=== PATIENT | male | born 1960 | race Two or more races ===

== ENCOUNTER 2025-02-11 08:33 | Inpatient (IN) | payer BC ==
[~2025-02-11] VITALS: Ht 190.5 cm; Wt 138.4 kg
[~2025-02-11 08:33] MED LIST: ALBUAER3 IN; DILT-29 PO; FLUT1AER17 IN; GABA-1250 PO; LOSA-535 PO; METO-289 PO; MISC1CAP7 PO; MULT-1180 PO; OMEP20TA PO; OXYC-963 PO; ROSU20TA14 PO; TIRZ12.5 SC
[2025-02-11] MEDS ORDERED: ONDANSETRON HCL 4 MG/2 ML VIAL ONE (08:55)
[2025-02-11] MEDS ORDERED: ROCURONIUM 10MG/ML 10ML VIAL IV ONE (08:55)
[2025-02-11] MEDS ORDERED: PROPOFOL 10 MG/ML 20 ML IV ONE ×3 (08:55→11:44)
[2025-02-11] MEDS ORDERED: GLYCOPYRROLATE 0.2 MG/ML 1ML VIAL ONE (08:55)
[2025-02-11] MEDS ORDERED: fentaNYL CITRATE 100 MCG/2 ML VL ONE (08:56)
[2025-02-11] MEDS ORDERED: KETAMINE 50mg/ML 1ml syringe ONE (08:56)
[2025-02-11] MEDS ORDERED: SODIUM CHLORIDE LOCK 10 ML ONE ×5 (08:56→14:50)
--- NOTE | 2025-02-11 10:16 | POSTOP ---
Post-Operative Note Post-Operative Note Preop Diagnosis Post laminectomy syndrome Postop Diagnosis: 1. Post laminectomy syndrome lumbar spine with severe residual lumbar spinal stenosis at L4/5 and L5/S1 along with severe central canal stenosis at L3/4 2. Spondylolisthesis at the L4/5 and L5/S1 levels 3. 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 Revision lumbar 5 laminotomies/foraminotomies/facetectomies to decompress central canal and lumbar 5 nerve roots bilaterally 2. Revision lumbar 4 laminotomies, foraminotomies/facetectomies to decompress central canal and lumbar 4 nerve roots bilaterally 4. Lumbar 3 laminectomy with bilateral lumbar 2 laminotomies/foraminotomies/facetectomies to decompress spinal canal and lumbar 3 nerve roots 5. Lumbar 4 to sacral 1 posterior spinal intertransverse fusion with bone graft 6. Lumbar4 to sacral 1 posterior spinal instrumentation with pedicle screws 7. Autograft bone for fusion 8. Allograft bone to augment fusion Specimen None Anesthesia: General Anesthesiologist: Shemar Lin ALLERGY NURSE Blood Loss(fluid mgmt) See anesthesia record Tourniquet Time None Surgeon Dr Khari Momin Meat Curer Angeli Mancilla, ARAM RN FA Implant 6.5 x 35 x 2 screws 6.5x45x4 screw set screw x 6 80mm daquan x 2 Complications & Mgmt None Additional Remarks POD # 0 Dx: Post laminectomy syndrome -Disposition: -Pending -Discharge RX: Pending -Follow up appointment: with Dr Momin on on your scheduled postoperative appointment [id number] [facility] [address] [place] [address] [place] [id number] -Pain: - IV pain meds post op day 1, with PO supplementation, goal is to progress weaning off IV medications and control pain with PO only. morphine 1mg q 4 hours (PAIN 7-10) - P.O. analgesics:Tylenol 650MG (PAIN 1-3) Amigo 10/325 mg (PAIN 4-6) - Muscle relaxers scheduled administration. This is a beneficial medications for the incisional pain as it is mostly related to muscle spasms. Flexeril 10 mg TID - Cepacol throat lozenges as needed for sore throat -Antibiotics Operative recommendations: -Postoperative dose:-Post operative antibiotics cefazolin 1 g IV piggyback every 8 hours x 48 hours total of 6 doses -DVT PPX: -Hold all chemical DVT/ blood thinners for 14 days postoperatively -use mechanical DVT PPX such as SCD's, ambulation -Activity: -Pending PT evaluation and patients progression -Sit at side of bed for meals -Goal: Ambulate independently and safely (may use assistive devices if needed) -Medical Therapy goals: -Afebrile- Patient may develop a expected post operative fever by day 2-3, this may not be accompanied with a elevation in WBC. if fever develops: Acetaminophen for fever. Albuterol nebulizer Tx every 12 hours for 24 hours to facilitate adequate lung expansion and prevent development of atelectasis. -Euglycemic: bloods sugars under 130mmol/L for optimal healing -Normotensive: Avoid events of hypertension. This helps to keep post operative healing intact and avoids destabilization of beneficial hemostatic coagulation. -Lumbar: -If patient is comfortable encouraged the patient to lay on their side to facilitate wound healing -Drains: -Hemovac drains: These will be to full compression unless otherwise ordered. Please record and document output AND characteristic of fluid present independently EVERY 6 hours more often as needed. if there in no output indicate this by documenting 0ml. If output is greater than 100 ml in one hour of rolly blood call provider. These drains will be removed once the drainage is at a acceptable level (generally less than 100ml in 24 hours) -Sukhi dressing: This will stay in place and will be removed at the patients follow up visit. Nursing is to assess the seal and power source. The seal should be intact and the power source should have a green flashing light indicating it is functioning well. Batteries can last up to 14 days. If a leak develops the dressing edges can be reinforced with a Tegaderm dressing to reestablish intact seal. The Sukhi dressing is NOT a wound vac. This does not get changed, it does not need home health management. -Record output independently, drain 1. Is a deep drain and drain 2. Is a superficial drain. Wound drainage is described by type, color, amount, and odor. Drainage can be 1 Serous: Clear and thin, may be present in healing healthy wound. 2 Serosanguineous containing blood may also be present and healthy healing wound 3. Sanguinous primarily blood 4. Purulent this is thick, white, and pus like. It may be indicated to give of a infection and should constitute a call to the provider immediately with the plan that the sample should be cultured. -Saleem: discontinued in OR -Dressings Take care not to disrupt the SUKHI dressing seal. If there is a break in the seal it can be trouble shot with a Tegaderm dressing. -Dressing to Hemovac drains may be changed once the drains have been removed by the provider. -Bowel management: -Colace 100mg bid -Diet: -Clear liquid diet and advance as patient tolerates within dietary limitations ( example: diabetic, Cardiac) -Incentive Spirometer: -10 x hour while awake, RN please educate and observe repeat demonstration, have IS at bedside POD #1 -X-rays: - none indicated at this time -Consults: -Physical Therapy evaluation, treatment recommendations, and discharge re commendations Call with questions Davian Mancilla [facility]- Orthopaedic Spine Surgery nurse practitioner For Dr Dat Momin Patient was examined, chart reviewed, labs evaluated, and diagnostic studies and findings analyzed. Case was discussed with Dr. Khari Momin who formulated the plan of care. This medical document was created using an electronic medical record system with [employer] computerized dictation system. Although this document has been carefully reviewed, there might still be some phonetic and typographical errors. These areas are purely typographical due to imperfections of the software programs, and do not reflect any compromise in the patient's medical care. Date 02/11/25 Time 10:13 ANGELI MANCILLA NP Feb 11, 2025 10:16
[2025-02-11] MEDS: GABAPENTIN 400 MG CAP ONE (10:24)
[2025-02-11] MEDS: ACETAMINOPHEN IV 1000 MG/100ML (10MG/ML) IV ONE (10:30)
[2025-02-11] MEDS: GABAPENTIN 400 MG CAP PO ONE (10:30)
--- NOTE | 2025-02-11 10:31 | DVHHP2 ---
History of Present Illness Home Meds Reported Medications [facility] Natural Products ([employer] [facility]) 1 Cap Cap, 1 CAP PO DAILY, CAP 02/06/25 Multiple Vitamins W/ Minerals (Mens 50+ Multivitamin) 1 Tab Tab, 1 TAB PO DAILY, TAB 02/06/25 Omeprazole (Gnp Omeprazole) 20 Mg Tab, 1 TAB PO DAILY, #90 TAB 3 Refills 02/06/25 Oxycodone W/ Acetaminophen (Oxycodone/Acetaminophen 10-300 mg) 1 Tab Tab, 1 TAB PO PRN, TAB 02/06/25 Tirzepatide (Mounjaro) 12.5 Mg/0.5 Ml Inj, 12.5 MG SC QWEEKLY, INJ 02/06/25 Rosuvastatin Calcium (Crestor) 20 Mg Tab, 1 TAB PO DAILY, #90 TAB 3 Refills 02/06/25 Metoprolol Succinate (Metoprolol Succinate Er) 50 Mg Tab, 1 TAB PO QPM, #90 TAB 3 Refills 02/06/25 Losartan Potassium (Losartan Potassium) 100 Mg Tab, 1 TAB PO DAILY, #90 TAB 3 Refills 02/06/25 Diltiazem Hcl (DILTIAZEM HCL ER) 240 Mg Cap, 120 MG PO DAILY, CAP 02/06/25 Pnythzaoqbi-Yvskkwhozbin-Gxxyo (Trelegy Ellipta 200-62.5-25 Mcg/INH) 1 Aer Aer, 1 AER IN DAILY, AER 02/06/25 Albuterol Sulfate (VENTOLIN MDI) 90 Mcg Ih, 90 MCG IN PRN, INH 02/06/25 Gabapentin (Gabapentin) 300 Mg Cap, 1 CAP PO PRN, #90 CAP 3 Refills 02/06/25 Timing/Duration of Neck Pain: Changing over time Quality of Back Pain: Aching, Burning, Cramping Back Pain Location: Lumbar spine Back Pain Radiation: Buttocks, Thigh area Method of Injury/Prior Factors: Unknown Associated Symptoms of Back Pa: Numbness in legs, Numbness in feet, Tingling in legs, Tingling in feet, Sensory loss, Motor loss Review of Systems Constitutional: No symptom reported Ears, Nose, & Throat: No symptom reported Eyes: No symptom reported Pulmonary/Respiratory: No symptom reported Cardiovascular: No symptom reported Gastrointestinal: No symptom reported Genitourinary: No symptom reported Musculoskeletal: Leg pain, Muscle pain, Muscle stiffness, Muscle atrophy Skin: No symptom reported Psychiatric: No symptom reported Endocrine: No symptom reported Hemotologic/Lymphatic: No symptom reported H&P Exam Vital Signs Vital Signs Date Time Temp Pulse Resp B/P (MAP) Pulse Ox O2 Delivery O2 Flow Rate FiO2 02/11/25 09:10 97.9 79 20 120/79 (93) 95 97.9 General Appeara: Well developed, Well nourished, Normal Appearance Head Exam: Normal inspection Neck Exam: Normal inspection, Non-tender, Normal alignment Eye Exam: bilateral eye Normal inspection, bilateral eye PERRL, bilateral eye EOMI Ear Exam: bilateral ear Auricle normal, bilateral ear Canal normal, bilateral ear TM normal Nasal Exam: Normal inspection Mouth: Normal Inspection Pulmonary/Respiratory: Normal inspection, Normal breath sounds, Chest non- tender, Lungs clear Cardiovascular/Chest: Normal inspection, Regular rate, Normal Rhythm Abdominal Exam: Normal bowel sounds, Soft, No tenderness, No hepatospenomegaly, No masses Rectal Exam: Deferred Back Exam: Decreased range of motion, Muscle spasm, Vertebral tenderness Pelvic Exam: Not done Male Genital Exam: Not done Shoulder Exam: Normal inspection, Non-tender, Normal ROM Elbow/Forearm Exam: Normal inspection, Non-tender, Normal ROM Wrist Exam: Normal inspection, Non-tender, Normal ROM Hand Exam: Normal inspection, Non-tender, Normal ROM Hip exam: Normal inspection, Non-tender, Normal range of motion Legs: bilateral leg non-tender, bilateral leg normal inspection, bilateral leg normal range of motion, bilateral leg no evidence of injury Knees: bilateral knee non-tender, bilateral knee normal inspection, bilateral knee normal range of motion, bilateral knee no evidence of injury Ankle Exam: bilateral ankle Normal inspection, bilateral ankle Non-tender, bilateral ankle Normal range of motion, bilateral ankle No evidence of injury Foot: bilateral foot non-tender, bilateral foot normal inspection, bilateral foot normal range of motion, bilateral foot no evidence of injury Tendon/ Neuro: Motor deficit, Sensory deficit [employer]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 Exam: Normal hearing, Normal speech, PERRL Motor/Sensory: Sensory deficit Deep Tendon Ref: All intact Neuro/Mental St: Alert, Oriented Eye contact/ Speech: Cooperative, Good eye contact, Normal speech Coordination/Gait: Normal finger->nose, Normal gait, Negative Romberg's sign Labs/Xrays MRI lumbar spine: prior laminotomies at L4/5 and L5/S1 on the right side with spondylolisthesis at L5/S1 and severe spinal stenosis at L3/4 Assessment/Plan Primary Diagnosis Post laminectomy syndrome lumbar spine Plan admit for revision lumbar decompression with Lumbar 4 to sacral 1 posterior spinal fusion with bone graft and instrumentation Plan discussed with: Patient BRENDA VERDUZCO MD Feb 11, 2025 10:31
[2025-02-11] MEDS ORDERED: ceFAZolin 1GM VL ONE ×2 (10:53→14:54)
[2025-02-11] MEDS: TRANEXAMIC ACID 20 ML ONE (10:55)
[2025-02-11] MEDS: ceFAZolin 2 GM/D5W50ml 50 ML IV ONE (11:00)
[2025-02-11] MEDS ORDERED: PHENYLEPHRINE HCL 10 MG/ML VL ONE (14:50)
--- NOTE | 2025-02-11 15:09 | DVHOP2 ---
Operative Report - 2 Report Details Date: 02/11/25 Preop Diagnosis: post laminectomy syndrome lumbar spine Postop Diagnosis: post laminectomy syndrome lumbar spine Surgeon: Khari Mmoin MD Tire And Tube Repairer: Angeli Durant NP Anesthesiologist: Shemar Lin Anesthesia: General Consent: The patient was informed of the risks and benefits of the procedure. These include but are not limited to complications of anesthesia, postoperative infection, incomplete relief of symptoms, recurrence of symptoms, damage to blood vessels, nerves and tendons, deep venous thrombosis, pulmonary embolism and possible need for repeat surgery in the future. Name of Procedure Performed see detailed note Procedure Details Procedure Details: Pre-op Diagnosis: 1. Post laminectomy syndrome lumbar spine with severe residual lumbar spinal stenosis at L4/5 and L5/S1 along with severe central canal stenosis at L3/4 2. Spondylolisthesis at the L4/5 and L5/S1 levels 3. Possible non union lumbar 4 to sacral 1 posterior spinal fusion Post-op Diagnosis: 1. Post laminectomy syndrome lumbar spine with severe residual lumbar spinal stenosis at L4/5 and L5/S1 along with severe central canal stenosis at L3/4 2. Spondylolisthesis at the L4/5 and L5/S1 levels 3. 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 Revision lumbar 5 laminotomies/foraminotomies/facetectomies to decompress central canal and lumbar 5 nerve roots bilaterally 2. Revision lumbar 4 laminotomies, foraminotomies/facetectomies to decompress central canal and lumbar 4 nerve roots bilaterally 4. Lumbar 3 laminectomy with bilateral lumbar 2 laminotomies/foraminotomies/facetectomies to decompress spinal canal and lumbar 3 nerve roots 5. Lumbar 4 to sacral 1 posterior spinal intertransverse fusion with bone graft 6. Lumbar4 to sacral 1 posterior spinal instrumentation with pedicle screws 7. Autograft bone for fusion 8. Allograft bone to augment fusion 9. De-mineralized bone matrix to augment fusion 10. Microscope for micro dissection Surgeon: Dr. Momin Assist: Angeli Durant NP Anesthesia: General Fluids and EBL: See anesthesia note Patient was seen in the Pre Anesthesia Care Unit (PACU) and the operative site was initialed by me. All questions were answered to the patients satisfaction and chart reviewed. The patient was taken to the operative room where pre- operative antibiotics were given 30 minutes prior to incision. General anesthesia was induced and neuro-monitoring leads placed. Saleem catheter was placed. The patient was turned prone onto the [facility] spinal table. While positioning, I made sure that the belly was free to allow proper expansion of the lungs. The hips were extended and all bony prominences padded. The shoulders were abducted 80 degree and the elbows flexed 100 degrees with no tension on the brachial plexus. I check the foot arterial pulses and they were palpable. The old surgical scar was marked with a marker prior to prepping and draping. The patient was prepped and draped and time out was taken at this time per usual protocol. At this time, the C-arm fluoroscope was brought in and was used to akin the incision borders proximally and distally. I made sure to use the previous incision and extended proximally as needed. Using a Number 10 Blade, an incision was made extending it proximally and distally per C arm akin from the posterior spinous process of lumbar 3 down to lumbar 5 , down to the lumbo-dorsal fascia. All bleeding was controlled with electrocautery. Self-retaining retractors were placed. Electrocautery was then used to take down the lumbo-dorsal fascia, to free the muscle off the bone bilaterally where the tissue was virgin. A Sonya retractor was placed over the posterior spinous process proximally and a lateral C-arm fluoroscope image was taken to insure we were at the correct level. Next, dissection through the prior surgical site was started at virgin tissue and the deep back muscles were taken down as deep as possible while avoiding getting too close to the dura and avoiding being too shallow to cause nerve injury and bleeding. Next, using bovie electro cautery, The deep fascia laterally to the facet joints was removed to expose the transverse processes of lumbar 3 and 4 and 5 while taking care to avoid injuring the facet capsule at the proximal end of the incision. Although the patient has a prior Lumbar 4 to sacral 1 fusion attempt, the posterior spinous process had a residual amount still left. At this point, I noted a large amount to bone graft and fibrous tissue from the Lumbar 4 to sacral 1 inter transverse interval and what appeared to be remnants of screw holes. This strongly suggests a non union from a prior fusion attempt especially since there was a spondylolisthesis at the L4/5 and L5/ S1 levels. Therefore the diagnosis of post laminectomy instability is expressed. . Next, the microscope was bought in for visualization and using a Luxell rongeur, the posterior spinous process of lumbar 3,4,and remnants of lumbar 5 removed and the bone was saved for use as local autograft. I used alternating Kerison 2 mm and 3 mm rongeurs to perform lumbar 3 ,4 and 5 and bilateral laminotomies/foraminotomies and facetectomies to revise the decompression of the central canal and lateral recesses and foramen to decompress the bilateral lumbar 3,4,5 nerve roots and central canal as well as perform a lumbar 3 laminectomy/foraminotomies/facetectomies bilaterally. Next using alternating Kerison 2mm and 3 mm rongeurs, the superior articular facets of lumbar 2 were removed bilaterally at the virgin dissection to decompress the lateral recess (facetectomies) and then extended proximally to decompress the foramen bilaterally (foraminotomies). Next , carefully, straight and curved curettes were used to free up the dura from residual lamina left from the prior surgeries and kerison 2mm and 3 mm rongeurs removed the remaining lamina (revision laminotomies). Next, the 3mm and 3mm Kerison rongeurs undercut the superior articular facets and widened the foramina in the manner described above for the 4 and 5 levels. I used a ball tipped nerve probed to insure that the respective nerve roots were able to be mobilized 5mm in each direction were unimpeded in the lateral recess and foramen. Next I carefully inspected the dura to make sure no durotomy was visible and it was not. I covered the exposed dura with gelfoam soaked in thrombin and the microscope was wheeled away from the operative filed. Using C arm fluoroscopy,I placed bilateral Lumbar 4,5 and sacral 1 screws. 6.5 X45 at L4, and L5 and 6.5X35 at S 1. Next, the c-arm fluoroscope took an AP and lateral x-ray to ensure proper placement of the pedicle screws. Next, the neuro-stimulation probe was placed over the tip of each screw and each screw stimulated only after a current greater than 10 mA was delivered to the screw. Next , I took a [place] Drill to decorticate the transverse process which were exposed and local bone graft, allograft bone and Demineralized bone matrix were placed along the inter transverse process intervals bilaterally (the fusion bed). Next a curved daquan sized to fit the pedicle screw interval was placed and secured to each pedicle screw using set screws, The set screws were tighten using a torque screwdriver (set to 10 N*M torque) to secure the daquan to the pedicle screws bilaterally. Final AP and lateral C arm fluoroscopic films were taken at this time. Next a 10 Solomon Islander diameter Hemovac drain was laced deep to the lumbo-dorsal fascia. The lumbo-dorsal fascia was closed with interrupted 0-Vicry sutures. The subcutaneous tissue was closed with interrupted 2-0 Vicryl sutures. The skin was closed with 2-0 nylon subcuticular suture. Sterile dressings were place. The pt. was turned supine onto the stretcher, extubated and taken to the recovery room in stable condition. Additional Notes: [id number] Condition Stable Disposition Still a Patient KHARI MOMIN MD Feb 11, 2025 15:09
[2025-02-11] MEDS ORDERED: GABAPENTIN 300 MG CAP PO SCH (15:15)
[2025-02-11] MEDS ORDERED: MORPHINE SULFATE INJ 2 MG/ml SYRG IV PRN (15:15)
[2025-02-11] MEDS ORDERED: ALBUTEROL SULF HFA 90MCG INH 200DOSE IN SCH (15:15)
[2025-02-11] MEDS ORDERED: NITROGLYCERIN 0.4 MG SL TAB SL PRN (15:15)
[2025-02-11] MEDS ORDERED: ACETAMINOPHEN 325 MG TAB PO PRN (15:15)
[2025-02-11] MEDS: D5W/SOD CHLO 0.9% 1,000 ML IV SCH ×2 (15:15→19:08)
[2025-02-11 15:32] VITALS: PULSE 63; RESP 14; O2SAT 100
[2025-02-11] MEDS ORDERED: NALOXONE HCL 0.4 MG/ML VIAL IV PRN (15:45)
[2025-02-11] MEDS ORDERED: hydrALAZINE HCL 20 MG/ML VL IV PRN (15:45)
[2025-02-11] MEDS ORDERED: FLUMAZENIL 0.1 MG/ML INJ 10ML MDV IV PRN (15:45)
[2025-02-11 15:50] VITALS: PULSE 69; RESP 15; O2SAT 91
[2025-02-11] MEDS: fentaNYL CITRATE 100 MCG/2 ML VL IV PRN (16:40)
[2025-02-11] MEDS: ONDANSETRON HCL 4 MG/2 ML VIAL IV PRN (16:46)
[2025-02-11] MEDS: LIDOCAINE 4MG/ML IV SOLN 500 ML IV ONE (16:47)
[2025-02-11] MEDS: MAGNESIUM SULFATE 1GM/100ML 100 ML IV ONE ×2 (16:47→16:48)
[2025-02-11] MEDS: ACETAMINOPHEN IV 100 ML IV ONE (16:47)
[2025-02-11] MEDS: PROPOFOL 100 ML IV ONE (16:48)
[2025-02-11] MEDS: HYDROmorphone HCL 2 MG/ML VL/or syr IV PRN (17:00)
[2025-02-11 17:25] VITALS: PULSE 70; RESP 13; O2SAT 94
[2025-02-11] MEDS: METOPROLOL SUCCINATE XL 50 MG TAB PO SCH (18:00)
[2025-02-11 18:30] VITALS: BP 116/86; PULSE 62; RESP 18; TEMP 97.6; O2SAT 96; O2SAT 98
[2025-02-11 20:00] VITALS: PULSE 65; PULSE 72; RESP 18; O2SAT 96
[2025-02-11 21:00] VITALS: BP 137/95; PULSE 72; RESP 18; TEMP 97.6; O2SAT 94
[2025-02-11] MEDS: ceFAZolin 1GM/50ML 50 ML IV SCH (21:26)
[2025-02-11] MEDS: DOCUSATE SOD 100 MG CAP PO SCH (21:26)
[2025-02-11] MEDS: ATORVASTATIN 20 MG TAB PO SCH (21:27)
[2025-02-11] MEDS: CYCLOBENZAPRINE HCL 10 MG TAB PO SCH (21:28)
--- NOTE | 2025-02-11 21:31 | DVH ---
C-ARM FLUOROSCOPY: PROCEDURE: C-arm utilization of the 60 minutes FLUOROSCOPY TIME: 172.4 seconds DAP: 150.92mGy FINDINGS: Spot intraoperative C arm radiographs demonstrating surgery in the lumbar spine. IMPRESSION: 1. Please refer to surgical report for detailed findings.
--- NOTE | 2025-02-11 21:31 | DVH ---
CLINICAL INDICATION: LUMBAR FUSION TECHNIQUE: 15 radiographic views of the surgery lumbar spine were obtained. Comparison: None FINDINGS/IMPRESSION: Refer to intraoperative report
[2025-02-11] MEDS ORDERED: ceFAZolin 1GM/50ML 50 ML IV SCH (22:00)
[2025-02-11] MEDS: HYDROcodone-ACET 10/325MG TAB PO PRN (23:29)
[2025-02-12] VITALS (14 sets, daily range): BP systolic 97–137; BP diastolic 63–97; PULSE 71–90; RESP 16–96; TEMP 97.6–98.8; O2SAT 94–99
[2025-02-12] MEDS: MORPHINE SULFATE INJ 2 MG/ml SYRG IV PRN (05:48)
[2025-02-12] MEDS ORDERED: PATIENTS OWN MEDICATION (Losartan Potassium 1 TAB) PO SCH (10:00)
[2025-02-12] MEDS ORDERED: PATIENTS OWN MEDICATION (Rosuvastatin Calcium (Crestor) 1 TAB) PO SCH (10:00)
[2025-02-12] MEDS ORDERED: DILTIAZEM HCL 120 MG PO SCH (10:00)
[2025-02-12] MEDS: LOSARTAN POTASSIUM 50 MG TAB PO SCH (10:45)
[2025-02-12] MEDS: dilTIAZem 120MG ER CAP PO SCH (10:49)
--- NOTE | 2025-02-12 11:34 | DVHPN2 ---
Progress Note - Surgical Date Seen: Feb 12, 2025 Post op day Post op day: 1 Subjective Patient reports: No new complaints, Feels better Review of Systems: HEENT:Normal, CVS:Normal, RESPIRATORY:Normal, GI:Normal, :Normal, MSK:Normal, NEURO:Normal (LBP,) Objective Vital signs Vital Sign Date Time Temp Pulse Resp B/P (MAP) Pulse Ox O2 Delivery O2 Flow Rate FiO2 02/12/25 10:50 81 17 113/68 02/12/25 09:00 98.1 96 98.1 02/12/25 04:15 Facial BiPAP Mask 35 02/12/25 00:42 3.0 Total Intake and Output 02/11/25 02/11/25 02/12/25 15:00 23:00 07:00 Intake Total 295 ml 100 ml 800 ml Output Total 110 ml Balance 295 ml -10 ml 800 ml Medications Current Medications Medications Dose Ordered Sig/Tina Route Start Time Stop Time Status Last Admin Dose Admin Ondansetron HCl 4 mg Q4HP PRN IV 02/11/25 15:15 Acetaminophen 650 mg Q6HP PRN PO 02/11/25 15:15 Acetaminophen/ Hydrocodone Bitart 1 tab Q6HP PRN PO 02/11/25 15:15 02/12/25 02:30 1 TAB Morphine Sulfate 1 mg Q4HP PRN IV 02/11/25 15:15 02/12/25 10:50 1 MG Cyclobenzaprine HCl 10 mg TID PO 02/11/25 22:00 02/12/25 05:53 10 MG Docusate Sodium 100 mg BID PO 02/11/25 22:00 02/12/25 10:44 100 MG Cefazolin Sodium 50 ml @ 100 mls/hr Q8HR IV 02/11/25 22:00 Cancel Cefazolin Sodium 50 ml @ 100 mls/hr Q8HR IV 02/11/25 22:00 02/13/25 14:29 02/12/25 05:40 100 MLS/HR Nitroglycerin 0.4 mg Q5MINP PRN SL 02/11/25 15:15 Morphine Sulfate 2 mg Q30M PRN IV 02/11/25 15:15 Albuterol 90 mcg PRN IN 02/11/25 15:15 Gabapentin 300 mg PRN PO 02/11/25 15:15 Metoprolol Succinate 50 mg QPM PO 02/11/25 18:00 Patient Own Medication 120 mg DAILY PO 02/12/25 10:00 UNV Patient Own Medication 1 tab DAILY PO 02/12/25 10:00 UNV Patient Own Medication 1 tab DAILY PO 02/12/25 10:00 Cancel Oxycodone HCl 10 mg ONCE PRN PO 02/11/25 15:45 Atorvastatin Calcium 40 mg HS PO 02/11/25 22:00 02/11/25 21:27 40 MG Diltiazem HCl 120 mg DAILY PO 02/12/25 10:00 02/12/25 10:49 120 MG Losartan Potassium 100 mg DAILY PO 02/12/25 10:00 02/12/25 10:45 100 MG Dextrose/Sodium Chloride 1,000 ml @ 100 mls/hr Q10H IV 02/11/25 18:45 02/12/25 04:45 100 MLS/HR Examination: GENERAL:Normal, HEENT:Normal, NECK:Normal, LUNGS:Normal, CVS: Normal, CVS:Abnormal, MSK:Normal, SKIN:Normal (Sukhi in place, drain #1 with 210 ml since surgery, drain #2 with 30 ml out since surgery ), NEURO:Normal (improved preoperative symptoms- patient has not been up to ambulate as of yet however he is moving himself independently in bed, states the only pain he is having at this point in time is some left hip pain that he feels may be related to his hip replacement and being in bed), :Normal Problem List/Assessment/Plan Problems: (1) Acute post-operative pain (2) Muscle spasm of back Assessment and Plan We will keep drains in Patient has not ambulated yet Pain is well controlled New pain if some hip achiness to the left side patient feels it is related to h is this hip replacement Patient is progressing well Dx: Post laminectomy syndrome -Disposition: -Pending -Discharge RX: Pending -Follow up appointment: with Dr Momin on on your scheduled postoperative appointment [id number] [facility] [address] [place] [address] [place] [id number] -Pain: - IV pain meds post op day 1, with PO supplementation, goal is to progress weaning off IV medications and control pain with PO only. morphine 1mg q 4 hours (PAIN 7-10) - P.O. analgesics:Tylenol 650MG (PAIN 1-3) [place] 10/325 mg (PAIN 4-6) - Muscle relaxers scheduled administration. This is a beneficial medications for the incisional pain as it is mostly related to muscle spasms. Flexeril 10 mg TID - Cepacol throat lozenges as needed for sore throat -Antibiotics Operative recommendations: -Postoperative dose:-Post operative antibiotics cefazolin 1 g IV piggyback every 8 hours x 48 hours total of 6 doses -DVT PPX: -Hold all chemical DVT/ blood thinners for 14 days postoperatively -use mechanical DVT PPX such as SCD's, ambulation -Activity: -Pending PT evaluation and patients progression -Sit at side of bed for meals -Goal: Ambulate independently and safely (may use assistive devices if needed) -Medical Therapy goals: -Afebrile- Patient may develop a expected post operative fever by day 2-3, this may not be accompanied with a elevation in WBC. if fever develops: Acetaminophen for fever. Albuterol nebulizer Tx every 12 hours for 24 hours to facilitate adequate lung expansion and prevent development of atelectasis. -Euglycemic: bloods sugars under 130mmol/L for optimal healing -Normotensive: Avoid events of hypertension. This helps to keep post operative healing intact and avoids destabilization of beneficial hemostatic coagulation. -Lumbar: -If patient is comfortable encouraged the patient to lay on their side to facilitate wound healing -Drains: -Hemovac drains: These will be to full compression unless otherwise ordered. Please record and document output AND characteristic of fluid present independently EVERY 6 hours more often as needed. if there in no output indicate this by documenting 0ml. If output is greater than 100 ml in one hour of rolly blood call provider. These drains will be removed once the drainage is at a acceptable level (generally less than 100ml in 24 hours) -Sukhi dressing: This will stay in place and will be removed at the patients follow up visit. Nursing is to assess the seal and power source. The seal should be intact and the power source should have a green flashing light indicating it is functioning well. Batteries can last up to 14 days. If a leak develops the dressing edges can be reinforced with a Tegaderm dressing to reestablish intact seal. The Sukhi dressing is NOT a wound vac. This does not get changed, it does not need home health management. -Record output independently, drain 1. Is a deep drain and drain 2. Is a superficial drain. Wound drainage is described by type, color, amount, and odor. Drainage can be 1 Serous: Clear and thin, may be present in healing healthy wound. 2 Serosanguineous containing blood may also be present and healthy healing wound 3. Sanguinous primarily blood 4. Purulent this is thick, white, and pus like. It may be indicated to give of a infection and should constitute a call to the provider immediately with the plan that the sample should be cultured. -Slaeem: discontinued in OR -Dressings Take care not to disrupt the SUKHI dressing seal. If there is a break in the seal it can be trouble shot with a Tegaderm dressing. -Dressing to Hemovac drains may be changed once the drains have been removed by the provider. -Bowel management: -Colace 100mg bid -Diet: -Clear liquid diet and advance as patient tolerates within dietary limitations ( example: diabetic, Cardiac) -Incentive Spirometer: -10 x hour while awake, RN please educate and observe repeat demonstration, have IS at bedside POD #1 -X-rays: - none indicated at this time -Consults: -Physical Therapy evaluation, treatment recommendations, and discharge recommendations Call with questions Davian Mancilla [facility] Orth[facility] Surgery nurse practitioner For Dr Dat Momin Patient was examined, chart reviewed, labs evaluated, and diagnostic studies and findings analyzed. Case was discussed with Dr. Khari Momin who formulated the plan of care. This medical document was created using an electronic medical record system with [employer] dictation system. Although this document has been carefully reviewed, there might still be some phonetic and typographical errors. These areas are purely typographical due to imperfections of the software programs, and do not reflect any compromise in the patient's medical care. Plan discussed with Plan discussed with: Patient, Other (Bedside nurse) Visit Coding Surgery Date of Service if different f: Feb 11, 2025 Billing Provider: INDY MANCILLA NP Surgery Visit Codes: NOT BILLABLE INDY MANCILLA NP Feb 12, 2025 11:34
[2025-02-12] MEDS ORDERED: ALBUTEROL SULF 2.5 MG/0.5ML(0.5%) NEB SOLN NEB PRN (12:30)
--- NOTE | 2025-02-12 12:30 | DVHINCON2 ---
Date Seen: Feb 12, [address] Momin Family History: Diabetes mellitus G8 MOTHER Allergies: Coded Allergies: NO KNOWN ALLERGIES (Unverified , 02/06/25) Home Meds Reported Medications Misc Natural Products (Touchstorm) 1 Cap Cap, 1 CAP PO DAILY, CAP 02/06/25 Multiple Vitamins W/ Minerals (Mens 50+ Multivitamin) 1 Tab Tab, 1 TAB PO DAILY, TAB 02/06/25 Omeprazole (Gnp Omeprazole) 20 Mg Tab, 1 TAB PO DAILY, #90 TAB 3 Refills 02/06/25 Oxycodone W/ Acetaminophen (Oxycodone/Acetaminophen 10-300 mg) 1 Tab Tab, 1 TAB PO PRN, TAB 02/06/25 Tirzepatide (Mounjaro) 12.5 Mg/0.5 Ml Inj, 12.5 MG SC QWEEKLY, INJ 02/06/25 Rosuvastatin Calcium (Crestor) 20 Mg Tab, 1 TAB PO DAILY, #90 TAB 3 Refills 02/06/25 Metoprolol Succinate (Metoprolol Succinate Er) 50 Mg Tab, 1 TAB PO QPM, #90 TAB 3 Refills 02/06/25 Losartan Potassium (Losartan Potassium) 100 Mg Tab, 1 TAB PO DAILY, #90 TAB 3 Refills 02/06/25 Diltiazem Hcl (DILTIAZEM HCL ER) 240 Mg Cap, 120 MG PO DAILY, CAP 02/06/25 Tvxyihmmtjj-Ydxpmdzpelqx-Bzskh (Trelegy Ellipta 200-62.5-25 Mcg/INH) 1 Aer Aer, 1 AER IN DAILY, AER 02/06/25 Albuterol Sulfate (VENTOLIN MDI) 90 Mcg Ih, 90 MCG IN PRN, INH 02/06/25 Gabapentin (Gabapentin) 300 Mg Cap, 1 CAP PO PRN, #90 CAP 3 Refills 02/06/25 Current Medications Current Medications Medications (Trade) Dose Ordered Sig/Tina Route PRN Reason Start Time Stop Time Status Last Admin Dextrose/Sodium Chloride 1,000 ml @ 100 mls/min Q10M IV 02/11/25 15:15 02/11/25 18:43 DC 02/11/25 15:15 Ondansetron HCl (Zofran) 4 mg Q4HP PRN IV NAUSEA / VOMITING 02/11/25 15:15 Acetaminophen (Tylenol Tablet) 650 mg Q6HP PRN PO MILD PAIN (1-3 PAIN SCALE) 02/11/25 15:15 Acetaminophen/ Hydrocodone Bitart ([place] 10/325MG Tab) 1 tab Q6HP PRN PO MODERATE PAIN (4-6 PAIN SCALE) 02/11/25 15:15 02/12/25 02:30 Morphine Sulfate 1 mg Q4HP PRN IV SEVERE PAIN (7-10 PAIN SCALE) 02/11/25 15:15 02/12/25 10:50 Cyclobenzaprine HCl (Flexeril Tablet) 10 mg TID PO 02/11/25 22:00 02/12/25 05:53 Docusate Sodium (Colace Capsule) 100 mg BID PO 02/11/25 22:00 02/12/25 10:44 Cefazolin Sodium 50 ml @ 100 mls/hr Q8HR IV 02/11/25 22:00 Cancel Cefazolin Sodium 50 ml @ 100 mls/hr Q8HR IV 02/11/25 22:00 02/13/25 14:29 02/12/25 05:40 Nitroglycerin (Ntrostat Sublingual) 0.4 mg Q5MINP PRN SL FOR CHEST PAIN 02/11/25 15:15 Morphine Sulfate 2 mg Q30M PRN IV FOR CHEST PAIN 02/11/25 15:15 Albuterol (Ventolin Hfa) 90 mcg PRN IN 02/11/25 15:15 Gabapentin (Neurontin Capsule) 300 mg PRN PO 02/11/25 15:15 Metoprolol Succinate (Toprol Xl) 50 mg QPM PO 02/11/25 18:00 Patient Own Medication 120 mg DAILY PO 02/12/25 10:00 UNV Patient Own Medication 1 tab DAILY PO 02/12/25 10:00 UNV Patient Own Medication 1 tab DAILY PO 02/12/25 10:00 Cancel Ondansetron HCl (Zofran) 4 mg ONCE PRN IV NAUSEA / VOMITING 02/11/25 15:45 02/11/25 16:19 DC 02/11/25 16:46 Naloxone HCl (Narcan) 0.4 mg Q10M PRN IV NARCOTIC REVERSAL 02/11/25 15:45 02/11/25 16:19 DC Flumazenil (Romazicon Injection) 0.2 mg ONCE PRN IV BENZODIAZEPINE REVERSAL 02/11/25 15:45 02/11/25 16:19 DC Hydralazine HCl (Apresoline Injection) 5 mg Q10M PRN IV SBP>160 02/11/25 15:45 02/11/25 16:36 DC Ephedrine Sulfate (ePHEDrine SULFATE) 10 mg Q10M PRN IV SBP LESS THAN 90 02/11/25 15:45 02/11/25 16:26 DC Fentanyl Citrate 25 mcg Q1HP PRN IV BREAKTHROUGH PAIN (7-10) 02/11/25 15:45 02/11/25 16:19 DC 02/11/25 16:40 Hydromorphone HCl (Dilaudid Injection) 0.5 mg Q10M PRN IV SEVERE PAIN (7-10 PAIN SCALE) 02/11/25 15:45 02/11/25 16:26 DC 02/11/25 17:00 Oxycodone HCl 10 mg ONCE PRN PO MODERATE PAIN (4-6 PAIN SCALE) 02/11/25 15:45 Atorvastatin Calcium (Lipitor) 40 mg HS PO 02/11/25 22:00 02/11/25 21:27 Diltiazem HCl (Cardizem ER Capsule) 120 mg DAILY PO 02/12/25 10:00 02/12/25 10:49 Losartan Potassium (Cozaar Tablet) 100 mg DAILY PO 02/12/25 10:00 02/12/25 10:45 Dextrose/Sodium Chloride 1,000 ml @ 100 mls/hr Q10H IV 02/11/25 18:45 02/12/25 04:45 Vital Signs Vital Signs Date Time Temp Pulse Resp B/P (MAP) Pulse Ox O2 Delivery O2 Flow Rate FiO2 02/12/25 10:50 81 17 113/68 02/12/25 09:00 98.1 96 98.1 02/12/25 04:15 Facial BiPAP Mask 35 02/12/25 00:42 3.0 Assessment see dictated note Plan discussed with: Patient Date of Service: Feb 12, 2025 Billing Provider: SUDHAKAR HELMS MD Common Visit Codes: [id number] INP/OBS CARE (HIGH) SUDHAKAR HELMS MD Feb 12, 2025 12:30
[2025-02-12] MEDS: PANTOPRAZOLE 40 MG TAB PO ONE (14:43)
--- NOTE | 2025-02-12 15:07 | DVHINCON2 ---
INTERNAL MEDICINE CONSULT HISTORY OF PRESENT ILLNESS: The patient is a 64-year-old gentleman who was admitted after he underwent surgery on the lumbar spine for a revision and spinal fusion. The patient at this time complains of pain in the back. No chest pain. No shortness of breath. No nausea or vomiting. REVIEW OF SYSTEMS: Review of rest systems otherwise currently negative. PAST MEDICAL HISTORY: Significant for hypertension, sleep apnea, hyperlipidemia, neuropathy, and COPD. MEDICATIONS: He takes inhalers, diltiazem, losartan, gabapentin, omeprazole, Crestor, Mounjaro. ALLERGIES: No known drug allergies. SOCIAL HISTORY: Denies smoking or alcohol. Lives at home with his . FAMILY HISTORY: Negative. PHYSICAL EXAMINATION: GENERAL: The patient is awake and alert. VITAL SIGNS: Temperature of 98.1, pulse 81 per minute, blood pressure 113/68. SHEENT: Unremarkable. There is no JVD. No pedal edema. LUNGS: Equal bilaterally. No added sounds. CARDIOVASCULAR: S1 and S2 is regular without murmurs. ABDOMEN: Soft. There is no organomegaly. NEUROLOGIC: Nonfocal. MUSCULOSKELETAL: There is dressing at the lumbar spine with drains in place. ASSESSMENT AND PLAN: * Hypertension for which the patient's blood pressure will be monitored. Losartan will be held. * Morbid obesity. * Obstructive sleep apnea for which he will continue on BiPAP. * Hyperlipidemia. * Neuropathy. * GERD. * COPD. 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 The patient received pain medication and physical therapy. MD MACY Best/KRISTEN TID: [id number] RECEIPT: [id number]
[2025-02-12] MEDS: D5W/SOD CHLO 0.9% 1,000 ML IV SCH (15:35)
[2025-02-13] VITALS (13 sets, daily range): BP systolic 102–137; BP diastolic 63–97; PULSE 61–96; RESP 16–19; TEMP 97.7–98.6; O2SAT 95–100
[2025-02-13] MEDS: PANTOPRAZOLE 40 MG TAB PO SCH (05:35)
[2025-02-13 06:52] LABS: Hematocrit 36.7 % (41.0-53.0); Hemoglobin 12.2 g/dL (13.5-17.5); Mean Corpuscular Hemoglobin 27.0 pg (28.0-32.0); Mean Corpuscular Volume 81.3 fL (80.0-100.0); Nucleated Red Blood Cells % 0.0 %
[2025-02-13 07:06] LABS: Alanine Aminotransferase 21 U/L (7-40); Albumin 3.7 g/dL (3.2-4.8); Alkaline Phosphatase 67 U/L (46-116); Anion Gap 7 (5-15); BUN/Creatinine Ratio 17.8 (10.0-20.0); Blood Urea Nitrogen 16 mg/dL (9-23); Calcium 8.8 mg/dL (8.7-10.4); Carbon Dioxide 27 mmol/L (20-31); Glucose 88 mg/dL (74-106); Potassium 3.8 mmol/L (3.5-5.1); Sodium 141 mmol/L (136-145)
[2025-02-13 07:07] LABS: Bilirubin, Total 0.5 mg/dL (0.2-1.0); Chloride 107 mmol/L (98-107); Total Protein 5.6 g/dL (5.7-8.2)
--- NOTE | 2025-02-13 09:53 | ECG ---
[facility] Test Date: 2025-02-13 Test Time: 09:24:55 Pat Name: NAKUL WILLARD Department: Respiratoy Room: 0293T B Gender: M Nursery Attendant: : 1960 Requested By: SUDHAKAR HELMS Order Number: [id number] Reading MD: Young Moura Measurements Intervals [place] Rate: 64 P: 56 [place]: 215 QRS: 57 QRSD: 94 T: 10 QT: 394 QTc: 407 Interpretive Statements Sinus rhythm Sinus pause Borderline prolonged OH interval Electronically Signed On 02-17-2025 18:39:06 PDT by Young Moura Please click the below link to view image of tracing.
--- NOTE | 2025-02-13 16:08 | DVHPN2 ---
Progress Note Date Seen: Feb 13, 2025 Medical Necessity Reason Pt with a Central, PICC or Fol: No Subjective Patient reports: No new complaints Review of Systems: HEENT:Normal, CVS:Normal, RESPIRATORY:Normal, GI:Normal, :Normal, MSK:Normal, NEURO:Normal Objective vital signs Vital Sign Date Time Temp Pulse Resp B/P (MAP) Pulse Ox O2 Delivery O2 Flow Rate FiO2 02/13/25 14:38 64 18 136/85 02/13/25 13:00 98.1 99 98.1 02/13/25 08:00 Nasal Cannula* 3 32 Total Intake and Output 02/12/25 02/12/25 02/13/25 15:00 23:00 07:00 Intake Total 1000 ml 850 ml 350 ml Output Total 430 ml 2620 ml 600 ml Balance 570 ml -1770 ml -250 ml medications Current Medications Medications Dose Ordered Sig/Tina Route Start Time Stop Time Status Last Admin Dose Admin Ondansetron HCl 4 mg Q4HP PRN IV 02/11/25 15:15 Acetaminophen 650 mg Q6HP PRN PO 02/11/25 15:15 Acetaminophen/ Hydrocodone Bitart 1 tab Q6HP PRN PO 02/11/25 15:15 02/13/25 08:14 1 TAB Morphine Sulfate 1 mg Q4HP PRN IV 02/11/25 15:15 02/13/25 14:38 1 MG Cyclobenzaprine HCl 10 mg TID PO 02/11/25 22:00 02/13/25 14:37 10 MG Docusate Sodium 100 mg BID PO 02/11/25 22:00 02/13/25 10:30 100 MG Cefazolin Sodium 50 ml @ 100 mls/hr Q8HR IV 02/11/25 22:00 Cancel Nitroglycerin 0.4 mg Q5MINP PRN SL 02/11/25 15:15 Morphine Sulfate 2 mg Q30M PRN IV 02/11/25 15:15 Albuterol 90 mcg PRN IN 02/11/25 15:15 Gabapentin 300 mg PRN PO 02/11/25 15:15 Metoprolol Succinate 50 mg QPM PO 02/11/25 18:00 02/12/25 18:07 50 MG Patient Own Medication 120 mg DAILY PO 02/12/25 10:00 UNV Patient Own Medication 1 tab DAILY PO 02/12/25 10:00 UNV Patient Own Medication 1 tab DAILY PO 02/12/25 10:00 Cancel Oxycodone HCl 10 mg ONCE PRN PO 02/11/25 15:45 02/12/25 14:51 10 MG Atorvastatin Calcium 40 mg HS PO 02/11/25 22:00 02/12/25 21:18 40 MG Diltiazem HCl 120 mg DAILY PO 02/12/25 10:00 02/12/25 10:49 120 MG Dextrose/Sodium Chloride 1,000 ml @ 75 mls/hr [id number] IV 02/12/25 12:30 02/13/25 10:22 75 MLS/HR Albuterol 2.5 mg Q4HPRN PRN NEB 02/12/25 12:30 Pantoprazole Sodium 40 mg DAILY@0600 PO 02/13/25 06:00 02/13/25 05:35 40 MG Examination: GENERAL:Normal, HEENT:Normal, NECK:Normal, LUNGS:Normal, CVS:Normal, ABDOMEN:Normal, MSK:Normal, MSK:Abnormal (lumber drain+), SKIN:Normal, NEURO:Normal, :Normal laboratory and microbiology Laboratory Tests 02/13/25 05:26 Test 02/13/25 05:26 Range/Units Serum Glucose 88 74-106 mg/dL Problem List/Assessment/Plan Problem List/Assessment/Plan * Hypertension for which the patient's blood pressure will be monitored. resume losartan * sinus pauses: dc lopressor, diltiazem * Morbid obesity. * Obstructive sleep apnea for which he will continue on BiPAP. * Hyperlipidemia. * Neuropathy. * GERD. * COPD. 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 The patient received pain medication and physical therapy. Plan discussed with: Patient My Orders My Orders Orders - SUDHAKAR HELMS MD Procedure Category Date Status Time Pt Request For Service PT 02/13/25 Logged 08:15 Date of Service: Feb 13, 2025 Billing Provider: SUDHAKAR HELMS MD Common Visit Codes: [id number] INP/OBS CARE(HIGH) SUDHAKAR HELMS MD Feb 13, 2025 16:08
--- NOTE | 2025-02-13 16:20 | DVHPN2 ---
Progress Note - Surgical Date Seen: Feb 13, 2025 Post op day Post op day: 2 Subjective Patient reports: No new complaints, Feels better Review of Systems: HEENT:Normal, CVS:Normal, RESPIRATORY:Normal, GI:Normal, :Normal, MSK:Normal, NEURO:Abnormal (BLE pain, LBP) Objective Vital signs Vital Sign Date Time Temp Pulse Resp B/P (MAP) Pulse Ox O2 Delivery O2 Flow Rate FiO2 02/13/25 14:38 64 18 136/85 02/13/25 13:00 98.1 99 98.1 02/13/25 08:00 Nasal Cannula* 3 32 Total Intake and Output 02/12/25 02/12/25 02/13/25 15:00 23:00 07:00 Intake Total 1000 ml 850 ml 350 ml Output Total 430 ml 2620 ml 600 ml Balance 570 ml -1770 ml -250 ml Medications Current Medications Medications Dose Ordered Sig/Tina Route Start Time Stop Time Status Last Admin Dose Admin Ondansetron HCl 4 mg Q4HP PRN IV 02/11/25 15:15 Acetaminophen 650 mg Q6HP PRN PO 02/11/25 15:15 Acetaminophen/ Hydrocodone Bitart 1 tab Q6HP PRN PO 02/11/25 15:15 02/13/25 08:14 1 TAB Morphine Sulfate 1 mg Q4HP PRN IV 02/11/25 15:15 02/13/25 14:38 1 MG Cyclobenzaprine HCl 10 mg TID PO 02/11/25 22:00 02/13/25 14:37 10 MG Docusate Sodium 100 mg BID PO 02/11/25 22:00 02/13/25 10:30 100 MG Cefazolin Sodium 50 ml @ 100 mls/hr Q8HR IV 02/11/25 22:00 Cancel Nitroglycerin 0.4 mg Q5MINP PRN SL 02/11/25 15:15 Morphine Sulfate 2 mg Q30M PRN IV 02/11/25 15:15 Albuterol 90 mcg PRN IN 02/11/25 15:15 Gabapentin 300 mg PRN PO 02/11/25 15:15 Patient Own Medication 120 mg DAILY PO 02/12/25 10:00 UNV Patient Own Medication 1 tab DAILY PO 02/12/25 10:00 UNV Patient Own Medication 1 tab DAILY PO 02/12/25 10:00 Cancel Oxycodone HCl 10 mg ONCE PRN PO 02/11/25 15:45 02/12/25 14:51 10 MG Atorvastatin Calcium 40 mg HS PO 02/11/25 22:00 02/12/25 21:18 40 MG Albuterol 2.5 mg Q4HPRN PRN NEB 02/12/25 12:30 Pantoprazole Sodium 40 mg DAILY@0600 PO 02/13/25 06:00 02/13/25 05:35 40 MG Losartan Potassium 50 mg DAILY PO 02/14/25 10:00 UNV Laboratory Laboratory Tests 02/13/25 05:26 Test 02/13/25 05:26 Range/Units Serum Glucose 88 74-106 mg/dL Examination: GENERAL:Normal, HEENT:Normal, NECK:Normal, LUNGS:Normal, CVS:Normal, ABDOMEN:Normal, MSK:Normal (improving ambulation), SKIN:Normal (SUKHI intact, drains intact), NEURO:Normal (improved preoperative symptome, some left hip pain), :Normal Problem List/Assessment/Plan Problems: (1) Muscle spasm of back (2) Acute post-operative pain Assessment and Plan POD 2 We will keep drains in drain output is 145ml drain #1 60 ml drain #2 Patient has ambulated in room and out in hernandez Pain is well controlled New pain if some hip achiness to the left side patient feels it is related to his this hip replacement- continues Patient is progressing well Dx: Post laminectomy syndrome -Disposition: -Pending -Discharge RX: Pending -Follow up appointment: with Dr Momin on on your scheduled postoperative appointment [id number] [facility] [address] [place] [id number] -Pain: - IV pain meds post op day 1, with PO supplementation, goal is to progress weaning off IV medications and control pain with PO only. morphine 1mg q 4 hours (PAIN 7-10) - P.O. analgesics:Tylenol 650MG (PAIN 1-3) [place] 10/325 mg (PAIN 4-6) - Muscle relaxers scheduled administration. This is a beneficial medications for the incisional pain as it is mostly related to muscle spasms. Flexeril 10 mg TID - Cepacol throat lozenges as needed for sore throat -Antibiotics Operative recommendations: -Postoperative dose:-Post operative antibiotics cefazolin 1 g IV piggyback every 8 hours x 48 hours total of 6 doses -DVT PPX: -Hold all chemical DVT/ blood thinners for 14 days postoperatively -use mechanical DVT PPX such as SCD's, ambulation -Activity: -Pending PT evaluation and patients progression -Sit at side of bed for meals -Goal: Ambulate independently and safely (may use assistive devices if needed) -Medical Therapy goals: -Afebrile- Patient may develop a expected post operative fever by day 2-3, this may not be accompanied with a elevation in WBC. if fever develops: Acetaminophen for fever. Albuterol nebulizer Tx every 12 hours for 24 hours to facilitate adequate lung expansion and prevent development of atelectasis. -Euglycemic: bloods sugars under 130mmol/L for optimal healing -Normotensive: Avoid events of hypertension. This helps to keep post operative healing intact and avoids destabilization of beneficial hemostatic coagulation. -Lumbar: -If patient is comfortable encouraged the patient to lay on their side to facilitate wound healing -Drains: -Hemovac drains: These will be to full compression unless otherwise ordered. Please record and document output AND characteristic of fluid present independently EVERY 6 hours more often as needed. if there in no output indicate this by documenting 0ml. If output is greater than 100 ml in one hour of rolly blood call provider. These drains will be removed once the drainage is at a acceptable level (generally less than 100ml in 24 hours) -Sukhi dressing: This will stay in place and will be removed at the patients follow up visit. Nursing is to assess the seal and power source. The seal should be intact and the power source should have a green flashing light indicating it is functioning well. Batteries can last up to 14 days. If a leak develops the dressing edges can be reinforced with a Tegaderm dressing to reestablish intact seal. The Sukhi dressing is NOT a wound vac. This does not get changed, it does not need home health management. -Record output independently, drain 1. Is a deep drain and drain 2. Is a superficial drain. Wound drainage is described by type, color, amount, and odor. Drainage can be 1 Serous: Clear and thin, may be present in healing healthy wound. 2 Serosanguineous containing blood may also be present and healthy healing wound 3. Sanguinous primarily blood 4. Purulent this is thick, white, and pus like. It may be indicated to give of a infection and should constitute a call to the provider immediately with the plan that the sample should be cultured. -Saleem: discontinued in OR -Dressings Take care not to disrupt the SUKHI dressing seal. If there is a break in the seal it can be trouble shot with a Tegaderm dressing. -Dressing to Hemovac drains may be changed once the drains have been removed by the provider. -Bowel management: -Colace 100mg bid -Diet: -Clear liquid diet and advance as patient tolerates within dietary limitations ( example: diabetic, Cardiac) -Incentive Spirometer: -10 x hour while awake, RN please educate and observe repeat demonstration, have IS at bedside POD #1 -X-rays: - none indicated at this time -Consults: -Physical Therapy evaluation, treatment recommendations, and discharge recommendations Call with questions Davian Mancilla [facility]- Orthopaedic Spine Surgery nurse practitioner For Dr Dat Momin Patient was examined, chart reviewed, labs evaluated, and diagnostic studies and findings analyzed. Case was discussed with Dr. Khari Momin who formulated the plan of care. This medical document was created using an electronic medical record system with [employer] dictation system. Although this document has been carefully reviewed, there might still be some phonetic and typographical errors. These areas are purely typographical due to imperfections of the software programs, and do not reflect any compromise in the patient's medical care. Plan discussed with Plan discussed with: Patient, Other (bedisde nurse) Visit Coding Surgery Date of Service if different f: Feb 11, 2025 Billing Provider: INDY MANCILLA NP Surgery Visit Codes: NOT BILLABLE INDY MANCILLA NP Feb 13, 2025 16:20
[2025-02-14] VITALS (12 sets, daily range): BP systolic 106–154; BP diastolic 55–96; PULSE 70–99; RESP 16–19; TEMP 97.5–98.8; O2SAT 94–100
[2025-02-14 06:38] LABS: Hematocrit 36.6 % (41.0-53.0); Hemoglobin 12.4 g/dL (13.5-17.5); Mean Corpuscular Hemoglobin 27.1 pg (28.0-32.0); Mean Corpuscular Volume 80.3 fL (80.0-100.0); Nucleated Red Blood Cells % 0.0 %
[2025-02-14 06:48] LABS: Anion Gap 8 (5-15); Carbon Dioxide 29 mmol/L (20-31); Chloride 104 mmol/L (98-107); Sodium 141 mmol/L (136-145)
[2025-02-14 06:49] LABS: Calcium 8.9 mg/dL (8.7-10.4)
[2025-02-14 06:54] LABS: BUN/Creatinine Ratio 15.9 (10.0-20.0); Blood Urea Nitrogen 13 mg/dL (9-23); Glucose 88 mg/dL (74-106)
[2025-02-14 06:57] LABS: Potassium 3.4 mmol/L (3.5-5.1)
[2025-02-14] MEDS: LOSARTAN POTASSIUM 50 MG TAB PO SCH (10:10)
--- NOTE | 2025-02-14 16:38 | DVHPN2 ---
Progress Note - Surgical Date Seen: Feb 14, 2025 Post op day Post op day: 3 Subjective Patient reports: No new complaints, Feels better Review of Systems: HEENT:Normal, CVS:Normal, RESPIRATORY:Normal, GI:Normal, :Normal, MSK:Normal, NEURO:Normal Objective Vital signs Vital Sign Date Time Temp Pulse Resp B/P (MAP) Pulse Ox O2 Delivery O2 Flow Rate FiO2 02/14/25 13:00 98.1 74 18 137/96 (110) 97 98.1 02/14/25 08:00 Room Air* 0 21 Total Intake and Output 02/13/25 02/13/25 02/14/25 15:00 23:00 07:00 Intake Total 120 ml 2105 ml 480 ml Output Total 1575 ml 1515 ml 1700 ml Balance -1455 ml 590 ml -1220 ml Medications Current Medications Medications Dose Ordered Sig/Tina Route Start Time Stop Time Status Last Admin Dose Admin Ondansetron HCl 4 mg Q4HP PRN IV 02/11/25 15:15 Acetaminophen 650 mg Q6HP PRN PO 02/11/25 15:15 Acetaminophen/ Hydrocodone Bitart 1 tab Q6HP PRN PO 02/11/25 15:15 02/14/25 10:11 1 TAB Morphine Sulfate 1 mg Q4HP PRN IV 02/11/25 15:15 02/13/25 14:38 1 MG Cyclobenzaprine HCl 10 mg TID PO 02/11/25 22:00 02/14/25 14:36 10 MG Docusate Sodium 100 mg BID PO 02/11/25 22:00 02/14/25 10:07 100 MG Cefazolin Sodium 50 ml @ 100 mls/hr Q8HR IV 02/11/25 22:00 Cancel Nitroglycerin 0.4 mg Q5MINP PRN SL 02/11/25 15:15 Morphine Sulfate 2 mg Q30M PRN IV 02/11/25 15:15 Albuterol 90 mcg PRN IN 02/11/25 15:15 Gabapentin 300 mg PRN PO 02/11/25 15:15 Patient Own Medication 120 mg DAILY PO 02/12/25 10:00 UNV Patient Own Medication 1 tab DAILY PO 02/12/25 10:00 UNV Patient Own Medication 1 tab DAILY PO 02/12/25 10:00 Cancel Oxycodone HCl 10 mg ONCE PRN PO 02/11/25 15:45 02/12/25 14:51 10 MG Atorvastatin Calcium 40 mg HS PO 02/11/25 22:00 02/13/25 21:34 40 MG Albuterol 2.5 mg Q4HPRN PRN NEB 02/12/25 12:30 Pantoprazole Sodium 40 mg DAILY@0600 PO 02/13/25 06:00 02/14/25 05:57 40 MG Losartan Potassium 50 mg DAILY PO 02/14/25 10:00 02/14/25 10:10 50 MG Laboratory Laboratory Tests 02/14/25 05:32 Test 02/14/25 05:32 Range/Units Serum Glucose 88 74-106 mg/dL Examination: GENERAL:Normal, HEENT:Normal, NECK:Normal, LUNGS:Normal, CVS:Normal, ABDOMEN:Normal, MSK:Normal (Patient still has some residual left hip pain, he is able to get up and ambulate well around the nurse's station), SKIN:Normal (Drains intact x2, sukhi dressing intact, we will discontinue the 2. Drain as it is just serous fluid at this time, we will keep drain 1. In and reassess tomorrow), NEURO:Normal (Significant improvement in preoperative symptoms), :Normal Problem List/Assessment/Plan Problems: (1) Muscle spasm of back (2) Acute post-operative pain Assessment and Plan POD 3 Discontinue drain 2. We will keep in drain 1. Another 24 hours Patient has ambulated in room and out in hernandez Pain is well controlled New pain if some hip achiness to the left side patient feels it is related to his this hip replacement- continues Patient is progressing well Dx: Post laminectomy syndrome -Disposition: -Pending -Discharge RX: Pending -Follow up appointment: with Dr Momin on on your scheduled postoperative appointment [id number] [facility] [address] [place] [id number] -Pain: - IV pain meds post op day 1, with PO supplementation, goal is to progress weaning off IV medications and control pain with PO only. morphine 1mg q 4 hours (PAIN 7-10) - P.O. analgesics:Tylenol 650MG (PAIN 1-3) [place] 10/325 mg (PAIN 4-6) - Muscle relaxers scheduled administration. This is a beneficial medications for the incisional pain as it is mostly related to muscle spasms. Flexeril 10 mg TID - Cepacol throat lozenges as needed for sore throat -Antibiotics Operative recommendations: -Postoperative dose:-Post operative antibiotics cefazolin 1 g IV piggyback every 8 hours x 48 hours total of 6 doses -DVT PPX: -Hold all chemical DVT/ blood thinners for 14 days postoperatively -use mechanical DVT PPX such as SCD's, ambulation -Activity: -Pending PT evaluation and patients progression -Sit at side of bed for meals -Goal: Ambulate independently and safely (may use assistive devices if needed) -Medical Therapy goals: -Afebrile- Patient may develop a expected post operative fever by day 2-3, this may not be accompanied with a elevation in WBC. if fever develops: Acetaminophen for fever. Albuterol nebulizer Tx every 12 hours for 24 hours to facilitate adequate lung expansion and prevent development of atelectasis. -Euglycemic: bloods sugars under 130mmol/L for optimal healing -Normotensive: Avoid events of hypertension. This helps to keep post operative healing intact and avoids destabilization of beneficial hemostatic coagulation. -Lumbar: -If patient is comfortable encouraged the patient to lay on their side to facilitate wound healing -Drains: -Hemovac drains: These will be to full compression unless otherwise ordered. Please record and document output AND characteristic of fluid present independently EVERY 6 hours more often as needed. if there in no output indicate this by documenting 0ml. If output is greater than 100 ml in one hour of rolly blood call provider. These drains will be removed once the drainage is at a acceptable level (generally less than 100ml in 24 hours) -Sukhi dressing: This will stay in place and will be removed at the patients follow up visit. Nursing is to assess the seal and power source. The seal should be intact and the power source should have a green flashing light indicating it is functioning well. Batteries can last up to 14 days. If a leak develops the dressing edges can be reinforced with a Tegaderm dressing to reestablish intact seal. The Sukhi dressing is NOT a wound vac. This does not get changed, it does not need home health management. -Record output independently, drain 1. Is a deep drain and drain 2. Is a superficial drain. Wound drainage is described by type, color, amount, and odor. Drainage can be 1 Serous: Clear and thin, may be present in healing healthy wound. 2 Serosanguineous containing blood may also be present and healthy healing wound 3. Sanguinous primarily blood 4. Purulent this is thick, white, and pus like. It may be indicated to give of a infection and should constitute a call to the provider immediately with the plan that the sample should be cultured. -Saleem: discontinued in OR -Dressings Take care not to disrupt the SUKHI dressing seal. If there is a break in the seal it can be trouble shot with a Tegaderm dressing. -Dressing to Hemovac drains may be changed once the drains have been removed by the provider. -Bowel management: -Colace 100mg bid -Diet: -Clear liquid diet and advance as patient tolerates within dietary limitations ( example: diabetic, Cardiac) -Incentive Spirometer: -10 x hour while awake, RN please educate and observe repeat demonstration, have IS at bedside POD #1 -X-rays: - none indicated at this time -Consults: -Physical Therapy evaluation, treatment recommendations, and discharge recommendations Call with questions Davian Mancilla ACNP- Orthopaedic Spine Surgery nurse practitioner For Dr Dat Momin Patient was examined, chart reviewed, labs evaluated, and diagnostic studies and findings analyzed. Case was discussed with Dr. Khari Momin who formulated the plan of care. This medical document was created using an electronic medical record system with [employer] dictation system. Although this document has been carefully reviewed, there might still be some phonetic and typographical errors. These areas are purely typographical due to imperfections of the software programs, and do not reflect any compromise in the patient's medical care. Plan discussed with Plan discussed with: Patient, Other (Bedside RN) Visit Coding Surgery Date of Service if different f: Feb 11, 2025 Billing Provider: INDY MANCILLA NP Surgery Visit Codes: NOT BILLABLE INDY MANCILLA NP Feb 14, 2025 16:38
--- NOTE | 2025-02-14 17:37 | DVHPN2 ---
Subjective Patient reports having postop surgical pain to lumbar spine. Reviewed: Care Plan, H&P, Labs, Medications Changes from previous H/P or p: No Changes General: Per HPI Objective Vitals Vital Signs Date Time Temp Pulse Resp B/P (MAP) Pulse Ox O2 Delivery O2 Flow Rate FiO2 02/14/25 17:00 97.8 71 16 154/90 (111) 94 97.8 02/14/25 08:00 Room Air* 0 21 Intake/Output Intake and Output 02/14/25 07:00 Intake Total 2705 ml Output Total 4790 ml Balance -2085 ml Intake Oral 1915 ml IV Total 790 ml Output Urine Total 4625 ml Drainage Total 165 ml # Voids 3 General Appearance: Alert, Oriented X3, Cooperative, No acute distress HEENT: Atraumatic, PERRLA Cardiovascular: Normal S1, Normal S2, Other (Sinus pause noted. Longest pause noted to be 1.6 seconds) Genitourinary: No Apparent Abnormalities Skin: Dry, Intact Psych/Mental Status: Mental status NL, Mood NL Medications Current Medications Medications Dose Ordered Sig/Tina Route Start Time Stop Time Status Last Admin Dose Admin Ondansetron HCl 4 mg Q4HP PRN IV 02/11/25 15:15 Acetaminophen 650 mg Q6HP PRN PO 02/11/25 15:15 Acetaminophen/ Hydrocodone Bitart 1 tab Q6HP PRN PO 02/11/25 15:15 02/14/25 16:50 1 TAB Morphine Sulfate 1 mg Q4HP PRN IV 02/11/25 15:15 02/13/25 14:38 1 MG Cyclobenzaprine HCl 10 mg TID PO 02/11/25 22:00 02/14/25 14:36 10 MG Docusate Sodium 100 mg BID PO 02/11/25 22:00 02/14/25 10:07 100 MG Cefazolin Sodium 50 ml @ 100 mls/hr Q8HR IV 02/11/25 22:00 Cancel Nitroglycerin 0.4 mg Q5MINP PRN SL 02/11/25 15:15 Morphine Sulfate 2 mg Q30M PRN IV 02/11/25 15:15 Albuterol 90 mcg PRN IN 02/11/25 15:15 Gabapentin 300 mg PRN PO 02/11/25 15:15 Patient Own Medication 120 mg DAILY PO 02/12/25 10:00 UNV Patient Own Medication 1 tab DAILY PO 02/12/25 10:00 UNV Patient Own Medication 1 tab DAILY PO 02/12/25 10:00 Cancel Oxycodone HCl 10 mg ONCE PRN PO 02/11/25 15:45 02/12/25 14:51 10 MG Atorvastatin Calcium 40 mg HS PO 02/11/25 22:00 02/13/25 21:34 40 MG Albuterol 2.5 mg Q4HPRN PRN NEB 02/12/25 12:30 Pantoprazole Sodium 40 mg DAILY@0600 PO 02/13/25 06:00 02/14/25 05:57 40 MG Losartan Potassium 50 mg DAILY PO 02/14/25 10:00 02/14/25 10:10 50 MG Laboratory Results Laboratory Tests 02/14/25 05:32 Chemistry Test 02/14/25 05:32 Calcium Level 8.9 mg/dL (8.7-10.4) Labs and/or images reviewed: Labs reviewed by me, Image(s) reviewed by me Assessment/Plan Assessment/Plan Impression: -DJD of the spine, status post lumbar spinal surgery -primary hypertension -sinus pause -obesity -obstructive sleep apnea -dyslipidemia -neuropathy -GERD -COPD Plan: -hold beta-blockers, calcium channel blockers. -continue losartan -spinal surgical consultation. Continues to have increased amount of drainage from wound VAC. -physical therapy -bronchodilators -CPAP at night Discharge once cleared by surgery. Sinus pauses are 1.5 seconds, persistent after cessation of beta blockers and calcium channel blockers. Patient hemodynamically stable. Total time spent with patient discussing and formulating plan of care: 35 minutes. This medical document was created using an electronic medical record system with [employer] dictation system. Although this document has been carefully reviewed, there may still be some phonetic and typographical errors. These areas are purely typographical due to imperfections of the software programs, and do not reflect any compromise in the patient's medical care. Plan discussed with: Patient, Other (RN) Date of Service: Feb 14, 2025 Billing Provider: ADRIEL SEXTON NP Common Visit Codes: [id number] INP/OBS CARE(HIGH) ADRIEL SEXTON NP Feb 14, 2025 17:37
[2025-02-15] VITALS (8 sets, daily range): BP systolic 114–146; BP diastolic 64–95; PULSE 65–96; RESP 14–23; TEMP 97.9–98.7; O2SAT 92–100
[2025-02-15] MEDS: ONDANSETRON HCL 4 MG/2 ML VIAL IV PRN (05:44)
--- NOTE | 2025-02-15 13:58 | DVHPN2 ---
Progress Note - Surgical Date Seen: Feb 15, 2025 Post op day Post op day: 4 Subjective Patient reports: No new complaints, Feels better Review of Systems: HEENT:Normal, CVS:Normal, RESPIRATORY:Normal, GI:Normal, :Normal, MSK:Normal, NEURO:Normal (improved post op symptoms) Objective Vital signs Vital Sign Date Time Temp Pulse Resp B/P (MAP) Pulse Ox O2 Delivery O2 Flow Rate FiO2 02/15/25 09:12 146/95 02/15/25 09:10 73 18 02/15/25 08:00 Room Air* 0 21 02/15/25 05:51 97 02/15/25 05:00 97.9 97.9 Total Intake and Output 02/14/25 02/14/25 02/15/25 15:00 23:00 07:00 Intake Total 550 ml 1200 ml Output Total 916 ml 1050 ml Balance -366 ml 150 ml Medications Current Medications Medications Dose Ordered Sig/Tina Route Start Time Stop Time Status Last Admin Dose Admin Ondansetron HCl 4 mg Q4HP PRN IV 02/11/25 15:15 02/15/25 05:44 4 MG Acetaminophen 650 mg Q6HP PRN PO 02/11/25 15:15 Acetaminophen/ Hydrocodone Bitart 1 tab Q6HP PRN PO 02/11/25 15:15 02/15/25 03:56 1 TAB Morphine Sulfate 1 mg Q4HP PRN IV 02/11/25 15:15 02/15/25 09:10 1 MG Cyclobenzaprine HCl 10 mg TID PO 02/11/25 22:00 02/15/25 05:44 10 MG Docusate Sodium 100 mg BID PO 02/11/25 22:00 02/15/25 09:11 100 MG Cefazolin Sodium 50 ml @ 100 mls/hr Q8HR IV 02/11/25 22:00 Cancel Nitroglycerin 0.4 mg Q5MINP PRN SL 02/11/25 15:15 Morphine Sulfate 2 mg Q30M PRN IV 02/11/25 15:15 Albuterol 90 mcg PRN IN 02/11/25 15:15 Gabapentin 300 mg PRN PO 02/11/25 15:15 Patient Own Medication 120 mg DAILY PO 02/12/25 10:00 UNV Patient Own Medication 1 tab DAILY PO 02/12/25 10:00 UNV Patient Own Medication 1 tab DAILY PO 02/12/25 10:00 Cancel Oxycodone HCl 10 mg ONCE PRN PO 02/11/25 15:45 02/12/25 14:51 10 MG Atorvastatin Calcium 40 mg HS PO 02/11/25 22:00 02/14/25 20:39 40 MG Albuterol 2.5 mg Q4HPRN PRN NEB 02/12/25 12:30 Pantoprazole Sodium 40 mg DAILY@0600 PO 02/13/25 06:00 02/15/25 05:44 40 MG Losartan Potassium 50 mg DAILY PO 02/14/25 10:00 02/15/25 09:12 50 MG Laboratory Laboratory Tests 02/14/25 05:32 Test 02/14/25 05:32 Range/Units Serum Glucose 88 74-106 mg/dL Examination: GENERAL:Normal, HEENT:Normal, NECK:Normal, LUNGS:Normal, CVS:Normal, ABDOMEN:Normal, MSK:Normal, SKIN:Normal (drain DC'd sukhi dressing reinforced), NEURO:Normal (improved preoperative symptoms) Problem List/Assessment/Plan Assessment and Plan POD 4 Discontinue drain 1 Patient has ambulated in room and out in hernandez Pain is well controlled New pain if some hip achiness to the left side patient feels it is related to his this hip replacement- continues, however slightly improved Patient is progressing well Dx: Post laminectomy syndrome -Disposition: -home -Discharge RX: sent by dr costa -Follow up appointment: with Dr Costa on on your scheduled postoperative appointment [id number] [facility] [address] [place] [id number] -Pain: - IV pain meds post op day 1, with PO supplementation, goal is to progress weaning off IV medications and control pain with PO only. morphine 1mg q 4 hours (PAIN 7-10) - P.O. analgesics:Tylenol 650MG (PAIN 1-3) Ridgely 10/325 mg (PAIN 4-6) - Muscle relaxers scheduled administration. This is a beneficial medications for the incisional pain as it is mostly related to muscle spasms. Flexeril 10 mg TID - Cepacol throat lozenges as needed for sore throat -Antibiotics Operative recommendations: -Postoperative dose:-Post operative antibiotics cefazolin 1 g IV piggyback every 8 hours x 48 hours total of 6 doses -DVT PPX: -Hold all chemical DVT/ blood thinners for 14 days postoperatively -use mechanical DVT PPX such as SCD's, ambulation -Activity: -Pending PT evaluation and patients progression -Sit at side of bed for meals -Goal: Ambulate independently and safely (may use assistive devices if needed) -Medical Therapy goals: -Afebrile- Patient may develop a expected post operative fever by day 2-3, this may not be accompanied with a elevation in WBC. if fever develops: Acetaminophen for fever. Albuterol nebulizer Tx every 12 hours for 24 hours to facilitate adequate lung expansion and prevent development of atelectasis. -Euglycemic: bloods sugars under 130mmol/L for optimal healing -Normotensive: Avoid events of hypertension. This helps to keep post operative healing intact and avoids destabilization of beneficial hemostatic coagulation. -Lumbar: -If patient is comfortable encouraged the patient to lay on their side to facilitate wound healing -Dressings Take care not to disrupt the SUKHI dressing seal. If there is a break in the seal it can be trouble shot with a Tegaderm dressing. -Dressing to Hemovac site may be changed prior to DC. -Bowel management: -Colace 100mg bid -Diet: patient tolerating -Incentive Spirometer: -10 x hour while awake, RN please educate and observe repeat demonstration, have IS at bedside POD #1 -X-rays: - none indicated at this time -Consults: -Physical Therapy evaluation, treatment recommendations, and discharge recommendations Call with questions Davian Mancilla [facility]- Orthopaedic Spine Surgery nurse practitioner For Dr Dat Costa Patient was examined, chart reviewed, labs evaluated, and diagnostic studies and findings analyzed. Case was discussed with Dr. Khari Costa who formulated the plan of care. This medical document was created using an electronic medical record system with [employer] dictation system. Although this document has been carefully reviewed, there might still be some phonetic and typographical errors. These areas are purely typographical due to imperfections of the software programs, and do not reflect any compromise in the patient's medical care. Plan discussed with Plan discussed with: Patient, Other (Jona RNx [phone]) Visit Coding Surgery Date of Service if different f: Feb 11, 2025 Billing Provider: INDY MANCILLA [facility] Surgery Visit Codes: NOT BILLABLE INDY MANCILLA NP Feb 15, 2025 13:58
--- NOTE | 2025-02-15 14:01 | DVHDS2 ---
Discharge Summary Date of Admission Feb 11, 2025 at 15:10 Date of Discharge: Feb 15, 2025 Admitting Diagnosis Post laminectomy syndrome lumbar spine with severe residual lumbar spinal stenosis at L4/5 and L5/S1 along with severe central canal stenosis at L3/4 2. Spondylolisthesis at the L4/5 and L5/S1 levels 3. 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 Wounds: posterior lumbar wound jenny dressing in place Labs/Diagnostic Data: Laboratory Results Test 02/14/25 05:32 02/13/25 05:26 White Blood Count 7.6 10^3/uL (4.4-10.8) Red Blood Count 4.56 10^6/uL (4.5-5.90) Hemoglobin 12.4 g/dL (13.5-17.5) Hematocrit 36.6 % (41.0-53.0) Mean Corpuscular Volume 80.3 fL (80.0-100.0) Mean Corpuscular Hemoglobin 27.1 pg (28.0-32.0) Mean Corpuscular Hemoglobin Concent 33.8 g/dL (32.0-36.0) Red Cell Distribution Width 15.8 % (11.8-14.3) Platelet Count 180 10^3/uL (140-450) Mean Platelet Volume 7.2 fL (6.9-10.8) Neutrophils (%) (Auto) 62.0 % (37.0-80.0) Lymphocytes (%) (Auto) 25.9 % (10.0-50.0) Monocytes (%) (Auto) 8.2 % (0.0-12.0) Eosinophils (%) (Auto) 3.4 % (0.0-7.0) Basophils (%) (Auto) 0.5 % (0.0-2.0) Neutrophils # (Auto) 4.7 10 ^3/uL (1.6-8.6) Lymphocytes # (Auto) 2.0 10 ^3/uL (0.4-5.4) Monocytes # (Auto) 0.6 10 ^3/uL (0-1.3) Eosinophils # (Auto) 0.3 10 ^3/uL (0-0.8) Basophils # (Auto) 0 10 ^3/uL (0-0.2) Nucleated Red Blood Cells 0.0 % Sodium Level 141 mmol/L (136-145) Potassium Level 3.4 mmol/L (3.5-5.1) Chloride Level 104 mmol/L (98-107) Carbon Dioxide Level 29 mmol/L (20-31) Anion Gap 8 (5-15) Blood Urea Nitrogen 13 mg/dL (9-23) Creatinine 0.82 mg/dL (0.700-1.30) Glomerular Filtration Rate Calc 99 mL/min (>90) BUN/Creatinine Ratio 15.9 (10.0-20.0) Serum Glucose 88 mg/dL (74-106) Calcium Level 8.9 mg/dL (8.7-10.4) Total Bilirubin 0.5 mg/dL (0.2-1.0) Aspartate Amino Transferase (AST) 27 U/L (13-40) Alanine Aminotransferase (ALT) 21 U/L (7-40) Alkaline Phosphatase 67 U/L (46-116) Total Protein 5.6 g/dL (5.7-8.2) Albumin 3.7 g/dL (3.2-4.8) Other Laboratory Tests 02/14/25 05:32 Brief Hx & Hospital Course: The patient arrived for a elective spine surgery with Dr. MOMIN. Surgery went as planned with no complications. After a short stay in the PACU patient was admitted to the hospital for postoperative care and pain management over the course of 4 postoperative days the patient was able to tolerate a diet, ambulate independently, the pain has been managed with oral analgesics. The surgical site is well-approximated with sutures, some residual drainage continues from drain insertion sites after removal, however it is manageable with daily wound care and dressing changes. Some improvement to preoperative symptoms of extremities, strength and motion. There is new post operative pain that is localized to the surgical site. patient did require a delay for dc due to high drain output, however he continued to physically improve post operatively. The patient will follow-up with Dr. Momin for wound check and suture check or staple removal. Patient did require a ECG found to have Sinus rhythm Sinus pause Borderline prolonged CT interval No intervention required. Patient will follow up as outpatient with PCP. Operations or Procedures Revision lumbar three-S1 posterior spinal decompression and fusion with L3-4, L4-5 posterior spinal interbody fusion with peek cage, bone graft with instrumentation Procedure: 1. Revision lumbar 5 laminotomies/foraminotomies/facetectomies to decompress central canal and lumbar 5 nerve roots bilaterally 2. Revision lumbar 4 laminotomies, foraminotomies/facetectomies to decompress central canal and lumbar 4 nerve roots bilaterally 4. Lumbar 3 laminectomy with bilateral lumbar 2 laminotomies/foraminotomies/facetectomies to decompress spinal canal and lumbar 3 nerve roots 5. Lumbar 4 to sacral 1 posterior spinal intertransverse fusion with bone graft 6. Lumbar4 to sacral 1 posterior spinal instrumentation with pedicle screws 7. Autograft bone for fusion 8. Allograft bone to augment fusion Condition at Discharge: Good Final Diagnosis/Problems List 1. Post laminectomy syndrome lumbar spine with severe residual lumbar spinal stenosis at L4/5 and L5/S1 along with severe central canal stenosis at L3/4 2. Spondylolisthesis at the L4/5 and L5/S1 levels 3. 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 Problems List: (1) Muscle spasm of back (2) Acute post-operative pain Discharge Disposition: Home Discharge Instruct/Medications Diet: See Comment Diet comment: you may resume your regular eating habits Activity: Light activity Activity comment: contnue to walk as much as possible Follow Up/Referral: keep your scheduled appointment Scheduled Albuterol Sulfate (Ventolin Mdi), 90 MCG IN PRN, (Reported) Cyclobenzaprine HCl (Cyclobenzaprine Hydrochlo), 10 MG PO TID Diltiazem Hcl (Diltiazem Hcl Er), 120 MG PO DAILY, (Reported) Docusate Sodium (Docusate Sodium), 100 MG PO BID Syqghvabqyf-Ccqtumoitgrf-Derxg (Trelegy Ellipta 200-62.5-25 Mcg/INH), 1 AER IN DAILY, (Reported) Gabapentin (Gabapentin), 1 CAP PO PRN, (Reported) Losartan Potassium (Losartan Potassium), 1 TAB PO DAILY, (Reported) Metoprolol Succinate (Metoprolol Succinate Er), 1 TAB PO QPM, (Reported) Misc Natural Products (Joint Health), 1 CAP PO DAILY, (Reported) Multiple Vitamins W/ Minerals (Mens 50+ Multivitamin), 1 TAB PO DAILY, (Reported) Omeprazole (Gnp Omeprazole), 1 TAB PO DAILY, (Reported) Oxycodone W/ Acetaminophen (Oxycodone/Acetaminophen 10-300 mg), 1 TAB PO PRN, (Reported) Rosuvastatin Calcium (Crestor), 1 TAB PO DAILY, (Reported) Tirzepatide (Mounjaro), 12.5 MG SC QWEEKLY, (Reported) 25 Discharge Statement: "Patient was advised to return to the ER or call 911 if any headaches, dizziness, shortness of breath, chest pain, abdominal pain, bleeding, fevers, or worsening of medical condition. Patient was counseled about treatment plan, medications, possible side effects, patientverbalized understanding. All questions were answered to the best of my ability. This discharge took greater then 30 minutes in planning, reviewing documentation, counseling the patient, and discussing with other team members." ASSESSMENT ASSESSMENT Assessment 1. Post laminectomy syndrome lumbar spine with severe residual lumbarspinal stenosis at L4/5 and L5/S1 along with severe central canal stenosisat L3/42. Spondylolisthesis at the L4/5 and L5/S1 levels3. 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
[2025-02-15] MEDS ORDERED: HYDR-4798 PO ×3 (14:09→16:18)
[2025-02-15] MEDS ORDERED: CYCL-611 PO ×2 (14:09→16:18)
[2025-02-15] MEDS ORDERED: DOCU-265 PO (14:09)
[2025-02-15] MEDS ORDERED: DOCU-94 PO (16:18)
--- NOTE | 2025-02-15 16:20 | DVHPN2 ---
Subjective Patient reports having postop surgical pain to lumbar spine. Reviewed: Care Plan, H&P, Labs, Medications Changes from previous H/P or p: No Changes General: Per HPI Objective Vitals Vital Signs Date Time Temp Pulse Resp B/P (MAP) Pulse Ox O2 Delivery O2 Flow Rate FiO2 02/15/25 09:12 146/95 02/15/25 09:10 73 18 02/15/25 09:00 98.7 94 98.7 02/15/25 08:00 Room Air* 0 21 Intake/Output Intake and Output 02/15/25 07:00 Intake Total 1750 ml Output Total 1966 ml Balance -216 ml Intake Oral 1750 ml Output Urine Total 1916 ml Drainage Total 50 ml General Appearance: Alert, Oriented X3, Cooperative, No acute distress HEENT: Atraumatic, PERRLA Cardiovascular: Normal S1, Normal S2, Other (Sinus pause noted. Longest pause noted to be 1.6 seconds) Genitourinary: No Apparent Abnormalities Skin: Dry, Intact Psych/Mental Status: Mental status NL, Mood NL Medications Current Medications Medications Dose Ordered Sig/Tina Route Start Time Stop Time Status Last Admin Dose Admin Ondansetron HCl 4 mg Q4HP PRN IV 02/11/25 15:15 02/15/25 14:11 4 MG Acetaminophen 650 mg Q6HP PRN PO 02/11/25 15:15 Acetaminophen/ Hydrocodone Bitart 1 tab Q6HP PRN PO 02/11/25 15:15 02/15/25 03:56 1 TAB Morphine Sulfate 1 mg Q4HP PRN IV 02/11/25 15:15 02/15/25 09:10 1 MG Cyclobenzaprine HCl 10 mg TID PO 02/11/25 22:00 02/15/25 05:44 10 MG Docusate Sodium 100 mg BID PO 02/11/25 22:00 02/15/25 09:11 100 MG Cefazolin Sodium 50 ml @ 100 mls/hr Q8HR IV 02/11/25 22:00 Cancel Nitroglycerin 0.4 mg Q5MINP PRN SL 02/11/25 15:15 Morphine Sulfate 2 mg Q30M PRN IV 02/11/25 15:15 Albuterol 90 mcg PRN IN 02/11/25 15:15 Gabapentin 300 mg PRN PO 02/11/25 15:15 Patient Own Medication 120 mg DAILY PO 02/12/25 10:00 UNV Patient Own Medication 1 tab DAILY PO 02/12/25 10:00 UNV Patient Own Medication 1 tab DAILY PO 02/12/25 10:00 Cancel Oxycodone HCl 10 mg ONCE PRN PO 02/11/25 15:45 02/12/25 14:51 10 MG Atorvastatin Calcium 40 mg HS PO 02/11/25 22:00 02/14/25 20:39 40 MG Albuterol 2.5 mg Q4HPRN PRN NEB 02/12/25 12:30 Pantoprazole Sodium 40 mg DAILY@0600 PO 02/13/25 06:00 02/15/25 05:44 40 MG Losartan Potassium 50 mg DAILY PO 02/14/25 10:00 02/15/25 09:12 50 MG Laboratory Results Laboratory Tests 02/14/25 05:32 Labs and/or images reviewed: Labs reviewed by me, Image(s) reviewed by me Assessment/Plan Assessment/Plan Impression: -DJD of the spine, status post lumbar spinal surgery -primary hypertension -sinus pause -obesity -obstructive sleep apnea -dyslipidemia -neuropathy -GERD -COPD Plan: -hold beta-blockers, calcium channel blockers. -continue losartan -spinal surgical consultation. Continues to have increased amount of drainage from wound VAC. -physical therapy -bronchodilators -CPAP at night -patient is cleared for discharge per surgery. Refer to discharge plan as articulated and her summary. Total time spent with patient discussing and formulating plan of care: 35 minutes. This medical document was created using an electronic medical record system with [employer] dictation system. Although this document has been carefully reviewed, there may still be some phonetic and typographical errors. These areas are purely typographical due to imperfections of the software programs, and do not reflect any compromise in the patient's medical care. Plan discussed with: Patient, Other (RN) My Orders Orders - ADRIEL SEXTON NP Procedure Category Date Status Time Discharge DISCHARGE 02/15/25 Transmitted 16:09 Date of Service: Feb 15, 2025 Billing Provider: ADRIEL SEXTON NP Common Visit Codes: [id number] INP/OBS CARE(HIGH) ADRIEL SEXTON NP Feb 15, 2025 16:20
== END 2025-02-15 18:54 | disposition home or self-care (01) | DRG 448 ==
LOC: SUR 08:33 → OVERFLOW 15:10 → TELE-WESTW 18:21
PROVIDERS: ADMIT Nurse Practitioner Acute Care; ATTEND Nurse Practitioner Acute Care
PROC: 0SG0071 Fusion of Lumbar Vertebral Joint with Autologous Tissue Substitute, Posterior Approach, Posterior Column, Open Approach (ICD-10-PCS; 2025-02-11)
PROC: 01NB0ZZ Release Lumbar Nerve, Open Approach (ICD-10-PCS; 2025-02-11)
PROC: 00NY0ZZ Release Lumbar Spinal Cord, Open Approach (ICD-10-PCS; 2025-02-11)
PROC: 4A11X4G Monitoring of Peripheral Nervous Electrical Activity, Intraoperative, External Approach (ICD-10-PCS; 2025-02-11)
PROC: 0SG3071 Fusion of Lumbosacral Joint with Autologous Tissue Substitute, Posterior Approach, Posterior Column, Open Approach (ICD-10-PCS; principal; 2025-02-11 10:40)
PROC: 5A09357 Assistance with Respiratory Ventilation, Less than 24 Consecutive Hours, Continuous Positive Airway Pressure (ICD-10-PCS; 2025-02-12)
PROC: 5A09357 Assistance with Respiratory Ventilation, Less than 24 Consecutive Hours, Continuous Positive Airway Pressure (ICD-10-PCS; 2025-02-13)
PROC: 5A09357 Assistance with Respiratory Ventilation, Less than 24 Consecutive Hours, Continuous Positive Airway Pressure (ICD-10-PCS; 2025-02-14)
DX: M96.0 Pseudarthrosis after fusion or arthrodesis (principal); M96.1 Postlaminectomy syndrome, not elsewhere classified; M48.061 Spinal stenosis, lumbar region without neurogenic claudication; E66.01 Morbid (severe) obesity due to excess calories; G47.33 Obstructive sleep apnea (adult) (pediatric); G62.9 Polyneuropathy, unspecified; I10 Essential (primary) hypertension; J44.9 Chronic obstructive pulmonary disease, unspecified; K21.9 Gastro-esophageal reflux disease without esophagitis; Z68.31 Body mass index [BMI] 31.0-31.9, adult; E78.5 Hyperlipidemia, unspecified; M62.830 Muscle spasm of back; Z96.642 Presence of left artificial hip joint; I44.0 Atrioventricular block, first degree; M47.896 Other spondylosis, lumbar region; Y83.8 Other surgical procedures as the cause of abnormal reaction of the patient, or of later complication, without mention of misadventure at the time of the procedure; M43.17 Spondylolisthesis, lumbosacral region; M48.07 Spinal stenosis, lumbosacral region; Z83.3 Family history of diabetes mellitus; Z79.899 Other long term (current) drug therapy; Y92.098 Other place in other non-institutional residence as the place of occurrence of the external cause
CPT/HCPCS: 36415; 72100; 76000; 80048; 80053; 85025; 86850; 86900; 86901; 93005; 94660; 97110; 97116; 97163; A4344; G0378; J0131; J0690; J1100; J1956; J2405; J2704; J7042